=== PATIENT | female | born 1935 | race Caucasian/White ===

== ENCOUNTER 2019-10-29 15:49 | Emergency (ER) | payer MEDICARE, OTHER ==
[~2019-10-29] VITALS: Ht 162.6 cm; Wt 62.8 kg
[2019-10-29 16:17] LABS: HEMATOCRIT 45 % (35-52); HEMOGLOBIN 15.3 G/DL (11.5-16.0); MEAN CORPUSCULAR HEMOGLOBIN 33 PG (25-34); MEAN CORPUSCULAR HGB CONC 34 G/DL (32-36); MEAN CORPUSCULAR VOLUME 99 FL (80-99); MEAN PLATELET VOLUME 10.2 FL (7.4-10.4); NEUTROPHILS % (AUTO) 52 % (42-75); PLATELET COUNT 164 10^3/uL (130-400); RED CELL DISTRIBUTION WIDTH 11.3 % (10.0-14.5); WHITE BLOOD COUNT 6.7 10^3/uL (4.3-11.0)
[2019-10-29 16:18] LABS: BASOPHILS % (AUTO) 0 % (0-10); EOSINOPHILS # (AUTO) 0.1 10^3/uL (0.0-0.3); EOSINOPHILS % (AUTO) 2 % (0-10); LYMPHOCYTES # (AUTO) 2.5 X 10^3 (1.0-4.0); LYMPHOCYTES % (AUTO) 38 % (12-44); MONOCYTES # (AUTO) 0.6 X 10^3 (0.0-1.0); MONOCYTES % (AUTO) 9 % (0-12); NEUTROPHILS # (AUTO) 3.5 X 10^3 (1.8-7.8)
--- NOTE | 2019-10-29 16:18 | ED Neurological Problem ---
General Chief Complaint: Neuro-Stroke Like Symptoms Stated Complaint: STROKE SYMPTOMS Source: patient Exam Limitations: no limitations History of Present Illness Date Seen by Provider: Oct 29, 2019 Time Seen by Provider: 16:10 Initial Comments Patient presents with concern that yesterday she had "TIA symptoms". Patient states she had an ocular migraine without headache with her typical symptoms of flashing lights that lasted less than an hour. States since then she has had some trouble remembering, trouble recalling words and doesn't remember much of yesterday. She denies any weakness, numbness or tingling, difficulty speech or swallowing. Denies history of TIA or stroke. Denies any heart problems, clotting disorder or current anticoagulation treatment. Family history significant for mother had TIAs and stroke. She denies chest pain, palpitations or swelling of extremity. Denies shortness of air or cough. Denies any recent illness, denies fever or chills, weakness or weight loss. Denies abdominal pain, nausea vomiting or change in bowel pattern. Denies any hot or cold intolerance Allergies and Home Medications Allergies Coded Allergies: Penicillins (Verified Allergy, Unknown, 10/29/19) Patient Home Medication List Home Medication List Reviewed: Yes Review of Systems Review of Systems Constitutional: no symptoms reported, see HPI Eyes: Blurred Vision (during migraine); Denies Decreased Acuity, Denies Photophobia Respiratory: no symptoms reported, see HPI Cardiovascular: no symptoms reported, see HPI Gastrointestinal: no symptoms reported, see HPI Psychiatric/Neurological: See HPI Endocrine: See HPI All Other Systems Reviewed Negative Unless Noted: Yes Past Tlmrpcz-Syxrwb-Pxaksm Hx Past Med/Social Hx: Reviewed Nursing Past Med/Soc Hx Patient Social History Smoking Status: Never a Smoker Recent Foreign Travel: No Physical Exam Vital Signs Vital Signs - First Documented 10/29/19 15:50 Temp 36.7 Pulse 75 Resp 16 B/P (MAP) 143/62 (89) Pulse Ox 100 O2 Delivery Room Air Capillary Refill : Height, Weight, BMI Height: '" Weight: lbs. oz. kg; BMI Method: General Appearance: WD/WN, no apparent distress HEENT: PERRL/EOMI, normal ENT inspection, TMs normal, pharynx normal Respiratory: chest non-tender, lungs clear Cardiovascular: regular rate, rhythm, no edema, no JVD Gastrointestinal: non tender, soft Extremities: normal range of motion, non-tender, normal inspection, no pedal edema, no calf tenderness Neurologic/Psychiatric: coat maker II-XII nml as tested, no motor/sensory deficits, alert, normal mood/affect, oriented x 3 Crainal Nerves: normal hearing, normal speech; No abnormal speech, No facial asymmetry, No facial droop, No facial paresthesias, No facial weakness, No gaze palsy Coordination/Gait: normal finger to nose, normal gait Motor/Sensory: no motor deficit, no sensory deficit, no pronator drift Skin: normal color, warm/dry Progress/Results/Core Measures Results/Orders Lab Results Laboratory Tests Test 10/29/19 16:00 10/29/19 16:25 Range/Units White Blood Count 6.7 4.3-11.0 10^3/uL Red Blood Count 4.58 4.35-5.85 10^6/uL Hemoglobin 15.3 11.5-16.0 G/DL Hematocrit 45 35-52 % Mean Corpuscular Volume 99 80-99 FL Mean Corpuscular Hemoglobin 33 25-34 PG Mean Corpuscular Hemoglobin Concent 34 32-36 G/DL Red Cell Distribution Width 11.3 10.0-14.5 % Platelet Count 164 130-400 10^3/uL Mean Platelet Volume 10.2 7.4-10.4 FL Neutrophils (%) (Auto) 52 42-75 % Lymphocytes (%) (Auto) 38 12-44 % Monocytes (%) (Auto) 9 0-12 % Eosinophils (%) (Auto) 2 0-10 % Basophils (%) (Auto) 0 0-10 % Neutrophils # (Auto) 3.5 1.8-7.8 X 10^3 Lymphocytes # (Auto) 2.5 1.0-4.0 X 10^3 Monocytes # (Auto) 0.6 0.0-1.0 X 10^3 Eosinophils # (Auto) 0.1 0.0-0.3 10^3/uL Basophils # (Auto) 0.0 0.0-0.1 10^3/uL Prothrombin Time 12.5 12.2-14.7 SEC INR Comment 0.9 0.8-1.4 Sodium Level 141 135-145 MMOL/L Potassium Level 3.8 3.6-5.0 MMOL/L Chloride Level 102 98-107 MMOL/L Carbon Dioxide Level 26 21-32 MMOL/L Anion Gap 13 5-14 MMOL/L Blood Urea Nitrogen 16 7-18 MG/DL Creatinine 1.13 0.60-1.30 MG/DL Estimat Glomerular Filtration Rate 46 BUN/Creatinine Ratio 14 Glucose Level 130 H 70-105 MG/DL Calcium Level 9.8 8.5-10.1 MG/DL Corrected Calcium 9.5 8.5-10.1 MG/DL Total Bilirubin 0.8 0.1-1.0 MG/DL Aspartate Amino Transf (AST/SGOT) 18 5-34 U/L Alanine Aminotransferase (ALT/SGPT) 11 0-55 U/L Alkaline Phosphatase 121 40-136 U/L Troponin I < 0.30 <0.30 NG/ML Total Protein 7.1 6.4-8.2 GM/DL Albumin 4.4 3.2-4.5 GM/DL Urine Color YELLOW Urine Clarity CLEAR Urine pH 7.0 5-9 Urine Specific [place] 1.010 L 1.016-1.022 Urine Protein NEGATIVE NEGATIVE Urine Glucose (UA) NEGATIVE NEGATIVE Urine Ketones NEGATIVE NEGATIVE Urine Nitrite NEGATIVE NEGATIVE Urine Bilirubin NEGATIVE NEGATIVE Urine Urobilinogen 0.2 < = 1.0 MG/DL Urine Leukocyte Esterase TRACE H NEGATIVE Urine RBC (Auto) TRACE H NEGATIVE Urine RBC 0-2 /HPF Urine WBC 0-2 /HPF Urine Squamous Epithelial Cells 0-2 /HPF Urine Crystals NONE /LPF Urine Bacteria NEGATIVE /HPF Urine Casts NONE /LPF Urine Mucus NEGATIVE /LPF Urine Culture Indicated NO My Orders Orders - ROVENSTINEKRISTINARJ L DO Ct Head Wo (10/29/19 16:07) Ed Iv/Invasive Line Start (10/29/19 16:07) Cbc With Automated Diff (10/29/19 16:07) Comprehensive Metabolic Panel (10/29/19 16:07) Troponin I Fs (10/29/19 16:07) Urinalysis (10/29/19 16:07) Protime With Inr (10/29/19 16:07) Vital Signs/I&O 10/29/19 10/29/19 15:50 17:39 Temp 36.7 Pulse 75 65 Resp 16 20 B/P (MAP) 143/62 (89) 133/56 Pulse Ox 100 96 O2 Delivery Room Air Departure Impression Primary Impression: Migraine Qualified Codes: G43.909 - Migraine, unspecified, not intractable, without status migrainosus Disposition: 01 HOME, SELF-CARE Condition: Stable Departure-Patient Inst. Referrals: SHELTON DIAL DO (PCP/Family) Primary Care Physician RJ GERMAN DO Oct 29, 2019 16:18 POS
--- NOTE | 2019-10-29 16:29 | Diagnostic Imaging Report ---
PROCEDURE: CT head without contrast. TECHNIQUE: Multiple contiguous axial images were obtained through the brain without the use of intravenous contrast. Auto Exposure Controls were utilized during the CT exam to meet ALARA standards for radiation dose reduction. INDICATION: No history. COMPARISON: No prior studies are available for comparison. FINDINGS: Ventricles and sulci appear appropriate for the patient's age. There is a small calcific density in the left posterior parafalcine location measuring 8 mm, likely a small meningioma. No sulcal effacement or midline shift is identified. No acute intra-axial or extra-axial hemorrhage is detected. Cisterns are patent. Visualized paranasal sinuses are clear. IMPRESSION: No acute intracranial process is detected. Dictated by: Dictated on workstation # [id number]
[2019-10-29 16:48] LABS: INR 0.9 (0.8-1.4); PROTHROMBIN TIME PATIENT 12.5 SEC (12.2-14.7)
[2019-10-29 16:49] LABS: ALANINE AMINOTRANSFERASE 11 U/L (0-55); ALKALINE PHOSPHATASE 121 U/L (40-136); BILIRUBIN,TOTAL 0.8 MG/DL (0.1-1.0); BUN/CREATININE RATIO 14; CALCIUM 9.8 MG/DL (8.5-10.1); CARBON DIOXIDE 26 MMOL/L (21-32); CHLORIDE 102 MMOL/L (98-107); CREATININE SERUM 1.13 MG/DL (0.60-1.30); GFR ESTIMATED 46; GLUCOSE 130 MG/DL (70-105); POTASSIUM 3.8 MMOL/L (3.6-5.0); SODIUM 141 MMOL/L (135-145)
[2019-10-29 16:50] LABS: ALBUMIN 4.4 GM/DL (3.2-4.5); TOTAL PROTEIN 7.1 GM/DL (6.4-8.2)
[2019-10-29 17:01] LABS: CLARITY,URINE CLEAR; COLOR,URINE YELLOW; GLUCOSE, URINE (UA) NEGATIVE (NEGATIVE); PROTEIN,URINE NEGATIVE (NEGATIVE)
[2019-10-29 17:02] LABS: BACTERIA,URINE NEGATIVE /HPF; BILIRUBIN,URINE NEGATIVE (NEGATIVE); KETONES,URINE NEGATIVE (NEGATIVE); LEUKOCYTE ESTERASE ,URINE TRACE (NEGATIVE); NITRITE,URINE NEGATIVE (NEGATIVE); RBC,URINE 0-2 /HPF; SQUAMOUS EPITHELIAL CELL,UR 0-2 /HPF; WBC,URINE 0-2 /HPF
[2019-10-29 17:39] VITALS: BP 133/56
== END 2019-10-29 17:40 | disposition home or self-care (01) ==
LOC: EDUNIT# 15:49 → ER FS 15:50
DX: G43.909 Migraine, unspecified, not intractable, without status migrainosus (principal); Z88.0 Allergy status to penicillin
CPT/HCPCS: 36415; 70450; 80053; 81000; 84484; 85025; 85610

== ENCOUNTER → 2019-12-09 | Outpatient (CLI) | payer MEDICARE, OTHER ==
[~2019-12-09] MED LIST: CATHETER FLUSH 10 ML SYR IV PRN
[2019-12-09 10:03] VITALS: BP 181/82
--- NOTE | 2019-12-09 17:18 | STRESS TEST ---
DATE OF SERVICE: 12/09/2019 NUCLEAR MYOVIEW REPORT REFERRING PHYSICIAN: Dr. Steinberg. In summary, the patient was injected with 10.15 mCi of technetium-99 Myoview and the resting images were acquired. With peak stress level, a 31.5 mCi of technetium-99 Myoview were injected and the stress images were acquired. The resting and stress images were reviewed and compared in the short axis, horizontal long axis, and vertical long axis views. Review of the images showed good radiotracer uptake with no ischemia or infarction. SSS is 1, SDS 1, TID value 0.99. On the gated images, the left ventricle appeared to be normal size with normal contractility, calculated ejection fraction 67%. CONCLUSION: 1. No ischemia or infarction on SPECT images. 2. Normal left ventricular size with normal contractility, calculated ejection fraction 67%. Job ID: [id number] DocumentID: [id number] Dictated Date: 12/09/2019 16:23:56 Stretcher Leveler Operator Helper Date: 12/09/2019 17:17:49 Dictated By: ROMELIA OBONE MD
== END ==
LOC: CARD 07:09
PROVIDERS: ATTEND Internal Medicine
DX: G45.9 Transient cerebral ischemic attack, unspecified (principal); I77.810 Thoracic aortic ectasia
CPT/HCPCS: 78452; 93017; 93306

== ENCOUNTER 2020-07-29 04:35 | Emergency (ER) | payer MEDICARE, OTHER ==
[2020-07-29 05:27] LABS: HEMATOCRIT 45 % (35-52); HEMOGLOBIN 15.2 G/DL (11.5-16.0); MEAN CORPUSCULAR HEMOGLOBIN 34 PG (25-34); MEAN CORPUSCULAR HGB CONC 34 G/DL (32-36); MEAN CORPUSCULAR VOLUME 100 FL (80-99); MEAN PLATELET VOLUME 10.4 FL (7.4-10.4); PLATELET COUNT 171 10^3/uL (130-400); WHITE BLOOD COUNT 5.2 10^3/uL (4.3-11.0)
[2020-07-29 05:28] LABS: BASOPHILS # (AUTO) 0.1 10^3/uL (0.0-0.1); BASOPHILS % (AUTO) 1 % (0-10); EOSINOPHILS # (AUTO) 0.1 10^3/uL (0.0-0.3); EOSINOPHILS % (AUTO) 2 % (0-10); LYMPHOCYTES # (AUTO) 2.1 X 10^3 (1.0-4.0); LYMPHOCYTES % (AUTO) 40 % (12-44); MONOCYTES # (AUTO) 0.6 X 10^3 (0.0-1.0); MONOCYTES % (AUTO) 11 % (0-12); NEUTROPHILS # (AUTO) 2.4 X 10^3 (1.8-7.8); NEUTROPHILS % (AUTO) 46 % (42-75)
--- NOTE | 2020-07-29 05:42 | ED Chest Pain ---
General Chief Complaint: Cardiac/General Problems Stated Complaint: A-FIB Nursing Triage Note: Pt states she has a hx of afib and feels like she is having palpitations. Nursing Sepsis Screen: No Definite Risk (CONSUELO RICKETTS DO) History of Present Illness Date Seen by Provider: Jul 29, 2020 Time Seen by Provider: 05:00 Initial Comments Patient is an 85-year-old female with history of intermittent atrial fibrillation who presented generalized weakness and palpitations. Palpitations her described as erratic and occasional. Patient checked her pulse at home prior to ED arrival which was 105. On ED arrival, the patient is in sinus rhythm with a heart rate of 67. Recent symptoms first began 6 days ago. Patient denies dizziness lightheadedness, chest pain and shortness of breath. No other acute symptoms or complaints. Patient's circular ripsaw operator is Dr. Montgomery at [facility].. Timing/Duration: 1 week Severity/Quality: mild Location: other Radiation: no radiation Activities at Onset: none Prior CP/Workup: echocardiography Modifying Factors: improves with lying down ASA po SALESPERSON HOUSEHOLD APPLIANCES: No NTG SL SALESPERSON HOUSEHOLD APPLIANCES: No Associated Symptoms: weakness (CONSUELO RICKETTS DO) Allergies and Home Medications Allergies Coded Allergies: Penicillins (Verified Allergy, Unknown, 10/29/19) Home Medications Sulfamethoxazole/Trimethoprim 1 Each Tablet, 1 EACH PO BID Prescribed by: MAHENDRA AREVALO on 07/29/20 0637 Patient Home Medication List Home Medication List Reviewed: Yes (CONSUELO RICKETTS DO) Review of Systems Review of Systems Constitutional: see HPI EENTM: See HPI Respiratory: See HPI Cardiovascular: See HPI Gastrointestinal: See HPI Genitourinary: See HPI Musculoskeletal: see HPI Skin: see HPI Psychiatric/Neurological: See HPI Endocrine: See HPI Hematologic/Lymphatic: See HPI (CONSUELO RICKETTS DO) Past Ynehtux-Lsgvya-Qzqxbf Hx Past Med/Social Hx: Reviewed Nursing Past Med/Soc Hx (CONSUELO RICKETTS DO) Patient Social History Alcohol Use: Denies Use Recreational Drug Use: No Smoking Status: Never a Smoker 2nd Hand Smoke Exposure: No Recent Foreign Travel: No Contact w/Someone Who Travel: No Recent Infectious Disease Expo: No Recent Hopitalizations: No Physical Abuse: No Sexual Abuse: No (CONSUELO RICKETTS DO) Seasonal Allergies Seasonal Allergies: No (CONSUELO RICKETTS DO) Past Medical History Surgeries: Yes Hysterectomy, Tonsillectomy Respiratory: No Cardiac: Yes (tachycardia) Neurological: Yes (ocular migraines) Genitourinary: No Gastrointestinal: No Musculoskeletal: No Endocrine: No HEENT: No Cancer: No Psychosocial: No Integumentary: No (CONSUELO RICKETTS DO) Physical Exam Vital Signs Vital Signs - First Documented 07/29/20 04:49 Temp 36.3 Pulse 85 Resp 16 B/P (MAP) 140/90 (107) O2 Delivery Room Air (MAHENDRA AREVALO MD) Vital Signs Capillary Refill : Less Than 3 Seconds (CONSUELO RICKETTS DO) Height, Weight, BMI Height: '" Weight: lbs. oz. kg; 23.00 BMI Method: General Appearance: No Apparent Distress, WD/WN HEENT: PERRL/EOMI, Normal ENT Inspection, Pharynx Normal Neck: Non Tender, Supple Respiratory: Chest Non Tender, Lungs Clear, No Accessory Muscle Use, No Respiratory Distress Cardiovascular: Regular Rate, Rhythm Gastrointestinal: Soft Extremity: Normal Capillary Refill Neurologic/Psychiatric: Alert, Oriented x3 Lymphatic: No Adenopathy (CONSUELO RICKETTS DO) Focused Exam Sepsis Stage: Ruled Out (CONSUELO RICKETTS DO) Progress/Results/Core Measures Results/Orders Lab Results Laboratory Tests Test 07/29/20 04:49 07/29/20 05:32 Range/Units White Blood Count 5.2 4.3-11.0 10^3/uL Red Blood Count 4.52 4.35-5.85 10^6/uL Hemoglobin 15.2 11.5-16.0 G/DL Hematocrit 45 35-52 % Mean Corpuscular Volume 100 H 80-99 FL Mean Corpuscular Hemoglobin 34 25-34 PG Mean Corpuscular Hemoglobin Concent 34 32-36 G/DL Red Cell Distribution Width 11.6 10.0-14.5 % Platelet Count 171 130-400 10^3/uL Mean Platelet Volume 10.4 7.4-10.4 FL Neutrophils (%) (Auto) 46 42-75 % Lymphocytes (%) (Auto) 40 12-44 % Monocytes (%) (Auto) 11 0-12 % Eosinophils (%) (Auto) 2 0-10 % Basophils (%) (Auto) 1 0-10 % Neutrophils # (Auto) 2.4 1.8-7.8 X 10^3 Lymphocytes # (Auto) 2.1 1.0-4.0 X 10^3 Monocytes # (Auto) 0.6 0.0-1.0 X 10^3 Eosinophils # (Auto) 0.1 0.0-0.3 10^3/uL Basophils # (Auto) 0.1 0.0-0.1 10^3/uL Sodium Level 140 135-145 MMOL/L Potassium Level 4.4 3.6-5.0 MMOL/L Chloride Level 102 98-107 MMOL/L Carbon Dioxide Level 26 21-32 MMOL/L Anion Gap 12 5-14 MMOL/L Blood Urea Nitrogen 18 7-18 MG/DL Creatinine 1.19 0.60-1.30 MG/DL Estimat Glomerular Filtration Rate 43 BUN/Creatinine Ratio 15 Glucose Level 99 70-105 MG/DL Calcium Level 9.7 8.5-10.1 MG/DL Corrected Calcium 9.5 8.5-10.1 MG/DL Magnesium Level 2.2 1.6-2.4 MG/DL Total Bilirubin 1.1 H 0.1-1.0 MG/DL Aspartate Amino Transf (AST/SGOT) 17 5-34 U/L Alanine Aminotransferase (ALT/SGPT) 8 0-55 U/L Alkaline Phosphatase 112 40-136 U/L Troponin I < 0.30 <0.30 NG/ML Pro-B-Type Natriuretic Peptide 456.2 H <75.0 PG/ML Total Protein 6.9 6.4-8.2 GM/DL Albumin 4.2 3.2-4.5 GM/DL Urine Color YELLOW Urine Clarity CLEAR Urine pH 6.5 5-9 Urine Specific [place] 1.010 L 1.016-1.022 Urine Protein NEGATIVE NEGATIVE Urine Glucose (UA) NEGATIVE NEGATIVE Urine Ketones NEGATIVE NEGATIVE Urine Nitrite NEGATIVE NEGATIVE Urine Bilirubin NEGATIVE NEGATIVE Urine Urobilinogen 0.2 < = 1.0 MG/DL Urine Leukocyte Esterase TRACE H NEGATIVE Urine RBC (Auto) TRACE H NEGATIVE Urine RBC 2-5 H /HPF Urine WBC 5-10 H /HPF Urine Squamous Epithelial Cells 2-5 /HPF Urine Crystals NONE /LPF Urine Bacteria NEGATIVE /HPF Urine Casts NONE /LPF Urine Mucus NEGATIVE /LPF Urine Culture Indicated YES (MAHENDRA AREVALO MD) My Orders Orders - MAHENDRA AREVALO MD Sulfamethoxazole/Trimet Ds Tab (Bactrim (07/29/20 06:33) Sulfamethoxazole/Trimet Ds Tab (Bactrim (07/29/20 06:32) (MAHENDRA AREVALO MD) Medications Given in ED Current Medications Medications Dose Ordered Sig/Feliz Route Start Time Stop Time Status Last Admin Dose Admin Furosemide 20 mg ONCE ONCE IVP 07/29/20 06:15 07/29/20 06:16 DC 07/29/20 06:12 20 MG (MAHENDRA AREVALO MD) Vital Signs/I&O 07/29/20 04:49 Temp 36.3 Pulse 85 Resp 16 B/P (MAP) 140/90 (107) O2 Delivery Room Air (MAHENDRA AREVALO MD) Blood Pressure Mean: 107 Progress Progress Note : Time: 06:10 Progress Note I assumed care of patient from Dr. Ricketts at shift change. Labs stable with mild findings for UTI and pt reporting odor to urine, so probable UTI. Culture of urine is being sent. Troponin negative and BNP is slightly elevated but for her age it looks ok. She is not having findings of failure. She reports feeling better now. She has long standing paroxysmal atrial fibrilla tion and follows with Dr. Montgomery with cardiology at [facility] in [place]. She called Monday but has not heard back from them. Will treat UTI and have her call again today. Return if having more problems before can get back with clinic. May need adjustment to Atenolol but hopefully treating the UTI will help her symptoms as well. (MAHENDRA AREVALO MD) Diagnostic Imaging Diagonstic Imaging: Xray Plain Films/CT/US/NM/MRI: chest Comments [facility]. [place], [place] NAME: GRETTA RAMAN [facility] REC#: [id number] PT STATUS: REG ER : 1935 PHYSICIAN: CONSUELO RICKETTS DO ADMIT DATE: 07/29/20/ER FS Draft Date of Exam:07/29/20 CHEST 1 VIEW AP/PA ONLY PATIENT HISTORY: Chest pain and palpitations. TECHNIQUE: Frontal view of the chest. COMPARISON: None FINDINGS: The lung volumes are mildly large. No focal consolidation is seen. No large pleural effusion or pneumothorax is seen. The cardiomediastinal silhouette is normal in size and contour. No acute osseous abnormality is seen. There are degenerative changes in the shoulders and spine. IMPRESSION: No acute pulmonary abnormality seen. Dictated on workstation # [id number] Dict: 07/29/20625 Trans: 07/29/20627 [id number] Interpreted by: YENIN TODD MD Electronically signed by: (MAHENDRA AREVALO MD) Departure Communication (Admissions) Chest x-ray reviewed, no acute disease. EKG: Sinus rhythm, rate 67. No ST depression in lateral leads Generalized weakness with occasional palpitation. Patient with sinus rhythm on monitor with occasional PVC and mild ST depression in lateral leads. Patient denies chest pain shortness of breath. Workup is in progress with labs pending. There will be transitioned to the oncoming ERP at 0600 (CONSUELO RICKETTS DO) Impression Primary Impression: Palpitations Additional Impressions: Generalized weakness Cystitis without hematuria Paroxysmal atrial fibrillation Disposition: HOME, SELF-CARE Condition: Stable Departure-Patient Inst. Decision time for Depature: 06:35 (MAHENRDA AREVALO MD) Referrals: SHELTON DIAL DO (PCP/Family) Primary Care Physician Patient Instructions: Atrial Fibrillation (DC), Palpitations (DC), Urinary Tract Infection, Adult (DC) Add. Discharge Instructions: Take the full course of antibiotics. Call your circular ripsaw operator again today and let them know you were seen in the ER. See if they want to see you in clinic or how they want to manage your increased episodes of atrial fibrillation with fast heart rate and palpitations. You may n eed to have an increase in your atenolol dose. All discharge instructions reviewed with patient and/or family. Voiced underst anding. Scripts Sulfamethoxazole/Trimethoprim (Bactrim Ds Tablet) 1 Each Tablet 1 EACH PO BID for UTI for 7 Days, #14 TAB 0 Refills Prov: MAHENDRA AREVALO MD 07/29/20 CONSUELO RICKETTS DO Jul 29, 2020 05:42 MAHENDRA AREVALO MD Jul 29, 2020 06:37
[2020-07-29 05:49] LABS: BACTERIA,URINE NEGATIVE /HPF; BILIRUBIN,URINE NEGATIVE (NEGATIVE); CLARITY,URINE CLEAR; COLOR,URINE YELLOW; GLUCOSE, URINE (UA) NEGATIVE (NEGATIVE); KETONES,URINE NEGATIVE (NEGATIVE); LEUKOCYTE ESTERASE ,URINE TRACE (NEGATIVE); NITRITE,URINE NEGATIVE (NEGATIVE); PH,URINE 6.5 (5-9); PROTEIN,URINE NEGATIVE (NEGATIVE)
[2020-07-29 05:59] LABS: ALANINE AMINOTRANSFERASE 8 U/L (0-55); ALKALINE PHOSPHATASE 112 U/L (40-136); BILIRUBIN,TOTAL 1.1 MG/DL (0.1-1.0); BUN/CREATININE RATIO 15; CALCIUM 9.7 MG/DL (8.5-10.1); CARBON DIOXIDE 26 MMOL/L (21-32); CHLORIDE 102 MMOL/L (98-107); CREATININE SERUM 1.19 MG/DL (0.60-1.30); GFR ESTIMATED 43; GLUCOSE 99 MG/DL (70-105); MAGNESIUM 2.2 MG/DL (1.6-2.4); POTASSIUM 4.4 MMOL/L (3.6-5.0); SODIUM 140 MMOL/L (135-145); TOTAL PROTEIN 6.9 GM/DL (6.4-8.2)
[2020-07-29 06:00] LABS: ALBUMIN 4.2 GM/DL (3.2-4.5)
[2020-07-29] MEDS ORDERED: FUROSEMIDE 40 MG/4 ML INJ (LASIX) IVP ONE ×2 (06:15)
--- NOTE | 2020-07-29 06:28 | Diagnostic Imaging Report ---
PATIENT HISTORY: Chest pain and palpitations. TECHNIQUE: Frontal view of the chest. COMPARISON: None FINDINGS: The lung volumes are mildly large. No focal consolidation is seen. No large pleural effusion or pneumothorax is seen. The cardiomediastinal silhouette is normal in size and contour. No acute osseous abnormality is seen. There are degenerative changes in the shoulders and spine. IMPRESSION: No acute pulmonary abnormality seen. Dictated by: Dictated on workstation # [id number]
[2020-07-29] MEDS ORDERED: TRIM/SULFAMETH 160/800 (SEPTRA DS) TAB PO ONE (06:32)
[2020-07-29] MEDS ORDERED: TRIM/SULFAMETH 160/800 (SEPTRA DS) TAB PO STA (06:33)
[2020-07-29] MEDS ORDERED: SULF1TAB35 PO (06:37)
[2020-07-29 06:40] VITALS: BP 153/60
== END 2020-07-29 06:42 | disposition home or self-care (01) ==
LOC: EDUNIT# 04:35 → ER FS 04:37
DX: I48.0 Paroxysmal atrial fibrillation (principal); N30.90 Cystitis, unspecified without hematuria; Z88.0 Allergy status to penicillin
CPT/HCPCS: 36415; 71045; 80053; 81000; 83735; 83880; 84484; 85025; 87088

== ENCOUNTER → 2021-06-17 | Outpatient (CLI) | payer MEDICARE, OTHER ==
[~2021-06-17] MED LIST changes: -CATHETER FLUSH 10 ML SYR IV PRN; +SULF1TAB38 PO
--- NOTE | 2021-06-17 11:26 | Diagnostic Imaging Report ---
Indication: Chronic cough PA and lateral chest Heart size and pulmonary vascularity are normal. Lungs are clear. There are no effusions or pneumothoraces. IMPRESSION: Negative chest Dictated by: Dictated on workstation # [id number]
== END ==
LOC: RAD FS 09:57
PROVIDERS: ATTEND Internal Medicine
DX: R05 Cough (principal)
CPT/HCPCS: 71046

== ENCOUNTER → 2021-06-24 | Outpatient (CLI) | payer MEDICARE, OTHER ==
--- NOTE | 2021-06-24 12:31 | Diagnostic Imaging Report ---
Indication: Constipation and abdominal pain Single AP view of the abdomen reveals mild stool throughout the colon. There is no evidence free intraperitoneal gas or pneumatosis. No site of obstruction is identified. There is no evidence of pathologic abdominal calcification. IMPRESSION: No acute abnormality. Dictated by: Dictated on workstation # [id number]
== END ==
LOC: RAD FS 11:28
PROVIDERS: ATTEND Nurse Practitioner Family
DX: R10.11 Right upper quadrant pain (principal); M54.6 Pain in thoracic spine; K59.00 Constipation, unspecified
CPT/HCPCS: 74018

== ENCOUNTER 2021-08-05 19:33 | Emergency (ER) | payer MEDICARE, OTHER ==
--- OUTSIDE RECORDS SUMMARY | 2021-08-05 19:37 | XMS REPORT | Clinical Summary ---
Author Author [facility] Organization [facility] Address Unknown Phone Unavailable Care Team Providers Care Laboratory Mechanical Technician Name Role Phone Manju Lorraine JANET PCP Source Comments Some departments are not documenting in the electronic medical record. If you d o not see the information that you expected, contact Release of Information in formerly [facility] [place] Information Management department at [phone] for further assistan ce in locating additional records.[facility] Allergies Comments Active Allergy Reactions Severity Noted Date Penicillins UNKNOWN Low 01/29/2021 Sulfa (Sulfonamide UNKNOWN Low 01/29/2021 Antibiotics) Medications End Date Status Medication Sig Dispensed Refills Start Date Active amLODIPine (NORVASC) 5 mg Take 5 mg by 0 tablet mouth daily. 1 Active atenoloL (TENORMIN) 25 mg every 24 0 tablet hours. Active nitrofurantoin every 12 0 monohyd/m-cryst hours. 0 (MACROBID) 100 mg capsule Active ergocalciferol (vitamin 0 D2) (VITAMIN D PO) Active apixaban (ELIQUIS) 5 mg every 12 0 tablet hours. Active amiodarone (PACERONE) 100 every 24 0 mg tablet hours. Active brimonidine tartrate Place into 0 (ALPHAGAN P OP) or around eye(s). Active other medication 1 Dose. 0 Medication Name & Strength: [facility] Dose(how many): 1 Frequency(how often): ONE A DAY Active estradioL (ESTRACE) 0.01 For 14 days, 42.5 g 2 % (0.1 mg/g) vaginal insert/apply 1 cream 0.5 g (1/2 fingertip unit) intravaginall y and to vaginal opening once nightly. Then, apply 1 g (1 fingertip unit) in the same way twice weekly at bedtime. Active Problems Problem Noted Date Vaginal atrophy 01/29/2021 Surgical History Surgery Date Site/Laterality Comments HX HYSTERECTOMY 11/13/1987 - 11/12/1988 OOPHORECTOMY 11/13/1987 - 11/12/1988 HEMORRHOIDECTOMY 11/13/1982 - 11/12/1983 Medical History Medical History Date Comments Hypertension Heart disease TIA (transient ischemic attack) 10/2019 A-fib (HCC) Family History Medical History Relation Name Comments Cancer-Skin Father Cancer-Skin Mother Heart Disease Mother Relation Name Status Comments Father Mother Social History Date Tobacco Use Types Packs/Day Years Used Never Smoker Smokeless Tobacco: Never Used Comments Alcohol Use Standard Drinks/Week Never 0 (1 standard drink = 0.6 o z pure alcohol) Alcohol Habits Answer Date Recorded How often do you have a drink containing alcohol? Never 01/29/2021 How many drinks containing alcohol do you have on No t asked a typical day when you are drinking? How often do you have six or more drinks on one Not asked occasion? Comment: Not asked Sex Assigned at Date Recorded Female 01/28/2021 7:55 AM CDT Last Filed Vital Signs Reading Time Taken Comments Vital Sign 133/63 01/29/2021 11:05 AM CDT Blood Pressure 76 01/29/2021 11:05 AM CDT Pulse 36.8 C (98.2 F) 01/29/2021 11:05 AM CDT Temperature 19 01/29/2021 11:05 AM CDT Respiratory Rate 100% 01/29/2021 11:05 AM CDT Oxygen Saturation - - Inhaled Oxygen Concentration 65 kg (143 lb 4.8 oz) 01/29/2021 11:05 AM CDT Weight 162.6 cm (5' 4") 01/29/2021 11:05 AM CDT Height 24.6 01/29/2021 11:05 AM CDT Body Mass Index Plan of Treatment Health Maintenance Due Date Last Done Comments MEDICARE ANNUAL WELLNESS 1935 VISIT DTAP/TDAP VACCINES (1 - 1955 Tdap) PHYSICAL (COMPREHENSIVE) 1955 EXAM SHINGLES RECOMBINANT 1987 VACCINE (1 of 2) OSTEOPOROSIS 2002 SCREENING/MONITORING PNEUMONIA (PPSV23) 2002 VACCINE (1 of 1 - PPSV23) INFLUENZA VACCINE 08/13/2021 Results Not on filefrom Last 3 Months Insurance Type Payer Benefit Subscriber ID Effective Phone Address Plan / Dates Group Medicare MEDICARE MEDICARE [id number] PART A AND resent B [facility] [id number] 2020 -Present [id number] Advance Directives Patient 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
--- NOTE | 2021-08-05 19:43 | ED General ---
General Stated Complaint: HYPERTENSION Source of Information: Patient History of Present Illness Date Seen by Provider: Aug 05, 2021 Time Seen by Provider: 19:40 Initial Comments 86-year-old female presents with generalized weakness, epigastric pain and nausea with loss of appetite for several weeks duration. Also concerns of elevated blood pressure tonight, although she has not taken her evening blood pressure medication yet. She admits she has been taking her blood pressure twice a day and its been going up. She normally takes her atenolol just in the evenings, not twice daily. Past medical history significant for hypertension. Patient does not recall the names of her other medications Allergies and Home Medications Allergies Coded Allergies: Penicillins (Verified Allergy, Unknown, 10/29/19) Patient Home Medication List Home Medication List Reviewed: Yes Sulfamethoxazole/Trimethoprim (Bactrim Ds Tablet) 1 Each Tablet, 1 EACH PO BID Prescribed by: MAHENDRA AREVALO on 07/29/20 0637 Review of Systems Review of Systems Constitutional: No fever, No malaise; weakness EENTM: no symptoms reported Respiratory: No cough, No short of breath Cardiovascular: No chest pain, No edema, No palpitations, No syncope Gastrointestinal: see HPI, abdominal pain; No constipation, No diarrhea, No hematemesis, No heartburn; loss of appetite, nausea; No vomiting Genitourinary: No dysuria, No frequency Musculoskeletal: no symptoms reported Skin: No change in color, No rash Psychiatric/Neurological: Denies Headache, Denies Numbness, Denies Paresthesia; Weakness Past Nidqxtb-Qeftpi-[id number] Hx Patient Social History Tobacco Use?: No Seasonal Allergies Seasonal Allergies: No Past Medical History Surgeries: Yes Hysterectomy, Tonsillectomy Respiratory: No Cardiac: Yes (tachycardia) Neurological: Yes (ocular migraines) Genitourinary: No Gastrointestinal: No Musculoskeletal: No Endocrine: No HEENT: No Cancer: No Psychosocial: No Integumentary: No Physical Exam Vital Signs Vital Signs - First Documented 08/05/21 19:35 Temp 37.0 Pulse 63 Resp 18 B/P (MAP) 191/82 (118) Pulse Ox 97 O2 Delivery Room Air Capillary Refill : Height, Weight, BMI Height: '" Weight: lbs. oz. 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 Norm as Tested Skin: Normal Color, Warm/Dry Progress/Results/Core Measures Suspected Sepsis SIRS Temperature: Pulse: Respiratory Rate: Laboratory Tests 08/05/21 19:55: White Blood Count 7.4 Blood Pressure / Mean: Laboratory Tests 08/05/21 19:55: Creatinine 2.67H, Platelet Count 155, Total Bilirubin 1.2H Results/Orders Lab Results Laboratory Tests Test 08/05/21 19:45 08/05/21 19:55 Range/Units Urine Color YELLOW Urine Clarity CLEAR Urine pH 7.0 5-9 Urine Specific [place] 1.015 L 1.016-1.022 Urine Protein NEGATIVE NEGATIVE Urine Glucose (UA) NEGATIVE NEGATIVE Urine Ketones NEGATIVE NEGATIVE Urine Nitrite NEGATIVE NEGATIVE Urine Bilirubin NEGATIVE NEGATIVE Urine Urobilinogen 0.2 < = 1.0 MG/DL Urine Leukocyte Esterase TRACE H NEGATIVE Urine RBC (Auto) 1+ H NEGATIVE Urine RBC 0-2 /HPF Urine WBC 2-5 /HPF Urine Squamous Epithelial Cells RARE /HPF Urine Crystals PRESENT H /LPF Urine Amorphous Sediment FEW LEONILA PHOSPHATE H /LPF Urine Bacteria NEGATIVE /HPF Urine Casts PRESENT /LPF Urine Hyaline Casts 0-2 H /LPF Urine Mucus SMALL H /LPF Urine Culture Indicated NO White Blood Count 7.4 4.3-11.0 10^3/uL Red Blood Count 4.09 3.80-5.11 10^6/uL Hemoglobin 13.5 11.5-16.0 g/dL Hematocrit 39 35-52 % Mean Corpuscular Volume 94 80-99 fL Mean Corpuscular Hemoglobin 33 25-34 pg Mean Corpuscular Hemoglobin Concent 35 32-36 g/dL Red Cell Distribution Width 12.7 10.0-14.5 % Platelet Count 155 130-400 10^3/uL Mean Platelet Volume 10.0 9.0-12.2 fL Immature Granulocyte % (Auto) 0 % Neutrophils (%) (Auto) 73 42-75 % Lymphocytes (%) (Auto) 14 12-44 % Monocytes (%) (Auto) 12 0-12 % Eosinophils (%) (Auto) 1 0-10 % Basophils (%) (Auto) 0 0-10 % Neutrophils # (Auto) 5.4 1.8-7.8 X 10^3 Lymphocytes # (Auto) 1.0 1.0-4.0 X 10^3 Monocytes # (Auto) 0.9 0.0-1.0 X 10^3 Eosinophils # (Auto) 0.0 0.0-0.3 10^3/uL Basophils # (Auto) 0.0 0.0-0.1 10^3/uL Immature Granulocyte # (Auto) 0.0 0.0-0.1 10^3/uL Sodium Level 133 L 135-145 MMOL/L Potassium Level 3.8 3.6-5.0 MMOL/L Chloride Level 96 L 98-107 MMOL/L Carbon Dioxide Level 26 21-32 MMOL/L Anion Gap 11 5-14 MMOL/L Blood Urea Nitrogen 40 H 7-18 MG/DL Creatinine 2.67 H 0.60-1.30 MG/DL Estimat Glomerular Filtration Rate 17 BUN/Creatinine Ratio 15 Glucose Level 121 H 70-105 MG/DL Calcium Level 15.6 *H 8.5-10.1 MG/DL Corrected Calcium 15.5 H 8.5-10.1 MG/DL Total Bilirubin 1.2 H 0.1-1.0 MG/DL Aspartate Amino Transf (AST/SGOT) 24 5-34 U/L Alanine Aminotransferase (ALT/SGPT) 13 0-55 U/L Alkaline Phosphatase 120 40-136 U/L Troponin I < 0.30 <0.30 NG/ML Total Protein 7.2 6.4-8.2 GM/DL Albumin 4.1 3.2-4.5 GM/DL My Orders Orders - RJ GERMAN DO Cbc With Automated Diff (08/05/21 19:40) Comprehensive Metabolic Panel (08/05/21 19:40) Ed Iv/Invasive Line Start (08/05/21 19:40) Ekg Tracing (08/05/21 19:40) Troponin I Fs (08/05/21 19:40) Urinalysis (08/05/21 19:40) Atenolol Tablet (Tenormin Tablet) (08/05/21 19:45) Atenolol Tablet (Tenormin Tablet) (08/05/21 19:45) Acetaminophen Tablet (Tylenol Tablet) (08/05/21 20:30) Ns Iv 1000 Ml (Sodium Chloride 0.9%) (08/05/21 21:00) Ns Iv 1000 Ml (Sodium Chloride 0.9%) (08/05/21 21:00) Chest 1 View Ap/Pa Only (08/05/21 21:32) Medications Given in ED Current Medications Medications Dose Ordered Sig/Feliz Route Start Time Stop Time Status Last Admin Dose Admin Acetaminophen 1,000 mg ONCE ONCE PO 08/05/21 20:30 08/05/21 20:31 DC 08/05/21 20:32 1,000 MG Atenolol 25 mg ONCE ONCE PO 08/05/21 19:45 08/05/21 19:50 DC 08/05/21 19:52 25 MG Vital Signs/I&O 08/05/21 19:35 Temp 37.0 Pulse 63 Resp 18 B/P (MAP) 191/82 (118) Pulse Ox 97 O2 Delivery Room Air Capillary Refill : Progress Note : Progress Note Multiple calls for placement (all prior to [facility] as typically and known yesterday to have no availability): [facility] 0-[facility] ECG Initial ECG Impression Date: Aug 05, 2021 Initial ECG Impression Time: 19:56 Initial ECG Rate: 60 Initial ECG Rhythm: Normal Sinus Initial ECG Intervals: Normal Initial ECG Impression: Normal Departure Impression Primary Impression: Renal failure Qualified Codes: N19 - Unspecified kidney failure Additional Impression: Hypercalcemia Disposition: XFER SHT-TRM HOSP ([facility]) Condition: Stable Transfer Transfer Reason: Exceeds level of care Time Spoke to Accepting Phy: 21:[address] Greenwood accepts for transfer to [facility]- bed assignment pending Departure-Patient Inst. Referrals: SHEL[facility] DIAL DO (PCP/Family) Primary Care Physician RJ GERMAN DO Aug 05, 2021 19:43
[2021-08-05] MEDS: ATENOLOL 25 MG (TENORMIN) TAB PO ONE (19:52)
[2021-08-05] MEDS: ATENOLOL 25 MG (TENORMIN) TAB ONE (19:53)
[2021-08-05 19:57] LABS: BILIRUBIN,URINE NEGATIVE (NEGATIVE); CLARITY,URINE CLEAR; COLOR,URINE YELLOW; GLUCOSE, URINE (UA) NEGATIVE (NEGATIVE); KETONES,URINE NEGATIVE (NEGATIVE); LEUKOCYTE ESTERASE ,URINE TRACE (NEGATIVE); NITRITE,URINE NEGATIVE (NEGATIVE); PROTEIN,URINE NEGATIVE (NEGATIVE)
[2021-08-05 20:17] LABS: BACTERIA,URINE NEGATIVE /HPF; RBC,URINE 0-2 /HPF; SQUAMOUS EPITHELIAL CELL,UR RARE /HPF
[2021-08-05 20:18] LABS: AMORPHOUS SEDIMENT,UR FEW AMOR PHOSPHATE /LPF; HYALINE CASTS, URINE 0-2 /LPF
[2021-08-05 20:21] LABS: WHITE BLOOD COUNT 7.4 10^3/uL (4.3-11.0)
[2021-08-05 20:22] LABS: BASOPHILS % (AUTO) 0 % (0-10); EOSINOPHILS % (AUTO) 1 % (0-10); HEMATOCRIT 39 % (35-52); HEMOGLOBIN 13.5 g/dL (11.5-16.0); LYMPHOCYTES % (AUTO) 14 % (12-44); MEAN CORPUSCULAR HEMOGLOBIN 33 pg (25-34); MEAN CORPUSCULAR HGB CONC 35 g/dL (32-36); MEAN CORPUSCULAR VOLUME 94 fL (80-99); MONOCYTES # (AUTO) 0.9 X 10^3 (0.0-1.0); MONOCYTES % (AUTO) 12 % (0-12); NEUTROPHILS # (AUTO) 5.4 X 10^3 (1.8-7.8); NEUTROPHILS % (AUTO) 73 % (42-75); PLATELET COUNT 155 10^3/uL (130-400)
[2021-08-05] MEDS: ACETAMINOPHEN 500 MG TAB (TYLENOL) PO ONE (20:32)
[2021-08-05 20:34] LABS: CHLORIDE 96 MMOL/L (98-107); POTASSIUM 3.8 MMOL/L (3.6-5.0); SODIUM 133 MMOL/L (135-145)
[2021-08-05 20:35] LABS: BUN/CREATININE RATIO 15; CARBON DIOXIDE 26 MMOL/L (21-32); CREATININE SERUM 2.67 MG/DL (0.60-1.30); GFR ESTIMATED 17; GLUCOSE 121 MG/DL (70-105)
[2021-08-05 20:37] LABS: CALCIUM 15.6 MG/DL (8.5-10.1)
[2021-08-05 20:38] LABS: ALANINE AMINOTRANSFERASE 13 U/L (0-55); ALBUMIN 4.1 GM/DL (3.2-4.5); ALKALINE PHOSPHATASE 120 U/L (40-136); BILIRUBIN,TOTAL 1.2 MG/DL (0.1-1.0); TOTAL PROTEIN 7.2 GM/DL (6.4-8.2)
[2021-08-05] MEDS: NS IV 1000 ML 1,000 ML IV SCH (21:09)
[2021-08-05] MEDS: NS IV 1000 ML 1,000 ML ONE (21:23)
--- NOTE | 2021-08-05 21:57 | Diagnostic Imaging Report ---
INDICATION: Weakness. EXAMINATION: Portable AP upright view of the chest was obtained. COMPARISON: Study of 07/29/2020. FINDINGS: Heart size and pulmonary vascularity are within normal limits, and the lungs are clear, bilaterally. IMPRESSION: Unremarkable chest. Dictated by: Dictated on workstation # [id number]
[2021-08-05 22:04] VITALS: BP 165/70
== END 2021-08-05 22:30 | disposition short-term general hospital (02) ==
LOC: ER FS 19:33 → EDUNIT# 19:33 → ER FS 22:30
DX: N19 Unspecified kidney failure (principal); E83.52 Hypercalcemia
CPT/HCPCS: 36415; 71045; 80053; 81000; 84484; 85025; 93005

== ENCOUNTER → 2021-09-10 | Outpatient (CLI) | payer MEDICARE, OTHER ==
--- NOTE | 2021-09-10 10:27 | Diagnostic Imaging Report ---
INDICATION: HISTORY OF PULMONARY EDEMA. TECHNIQUE: Two view chest 10:18 AM CORRELATION STUDY: 08/05/2021 FINDINGS: The heart size, mediastinal configuration and pulmonary vasculature are within normal limits. Lung mercado are slightly hyperinflated compatible with COPD. Mildly prominent interstitial markings likely reflect mild edema along with small pleural effusions. No infiltrate. Mildly prominent degenerative changes with bridging osteophytes. IMPRESSION: 1. While no evidence of overt failure, there does appear to be a component of mild interstitial edema and small pleural effusions, changed from prior. Dictated by: Dictated on workstation # [id number]
== END ==
LOC: RAD FS 10:06
PROVIDERS: ATTEND Nurse Practitioner Family
DX: Z87.09 Personal history of other diseases of the respiratory system (principal)
CPT/HCPCS: 71046

== ENCOUNTER → 2021-09-21 | Outpatient (CLI) | payer MEDICARE, OTHER ==
--- NOTE | 2021-09-21 14:11 | Diagnostic Imaging Report ---
Indication: History of pulmonary edema. COPD 2 views the chest shows normal heart size and vascularity. There is obstructive airway disease with no mass or infiltrate seen. There is no effusion or pneumothorax. IMPRESSION: COPD. No acute abnormality is seen. The previously described interstitial edema and small effusions have resolved. Dictated by: Dictated on workstation # [id number]
== END ==
LOC: RAD FS 13:35
PROVIDERS: ATTEND Nurse Practitioner Family
DX: J44.9 Chronic obstructive pulmonary disease, unspecified (principal)
CPT/HCPCS: 71046

== ENCOUNTER 2022-04-06 10:45 | Day surgery (SDC) | payer MEDICARE, OTHER ==
[~2022-04-06] VITALS: Ht 162.6 cm; Wt 58.3 kg
[2022-04-06] MEDS ORDERED: LIDOCAINE 1% INJ 20 ML VIAL INJ ONE (11:00)
[2022-04-06 11:02] VITALS: BP 140/62
--- NOTE | 2022-04-06 11:52 | Implantation of Loop Monitor ---
Implant of Loop Monitior IMPLANTATION OF LOOP MONITOR REPORT DATE OF PROCEDURE: 04/06/22 PREOP DIAGNOSIS: Paroxysmal atrial fibrillation POSTOP DIAGNOSIS: Paroxysmal atrial fibrillation PROCEDURE DETAILS: The patient is a 87 female with history of paroxysmal atrial fibrillation requiring long-term surveillance. Therefore implantable loop recorder was discussed and agreed with the patient. Informed consent was taken. All risks and complications were discussed at length. The patient was draped and prepped in the usual sterile fashion. Local anesthesia was lidocaine, which was given in the substernal area close to the 4th intercostal space. Loop monitor 21GRAMStronic with serial number [id number] was implanted according to the protocol. Steri- Strips were placed at the end of the procedure. There were no complications and the patient tolerated the procedure well. The device was interrogated with a voltage of. ANESTHESIA: Local anesthesia with lidocaine. COMPLICATIONS: None CONTRAST/FLUOROSCOPY: None CONCLUSION: Successful implantation of loop monitor with no complication FINAL DIAGNOSIS: Paroxysmal atrial fibrillation Palpitation Hypertension ROMELIA BOONE MD April 06, 2022 11:52
== END 2022-04-06 12:10 | disposition home or self-care (01) ==
LOC: CATH 10:45
PROVIDERS: ATTEND Internal Medicine Cardiovascular Disease
DX: I48.0 Paroxysmal atrial fibrillation (principal); R00.2 Palpitations; I65.29 Occlusion and stenosis of unspecified carotid artery; E78.5 Hyperlipidemia, unspecified; N18.9 Chronic kidney disease, unspecified; I12.9 Hypertensive chronic kidney disease with stage 1 through stage 4 chronic kidney disease, or unspecified chronic kidney disease; I35.0 Nonrheumatic aortic (valve) stenosis; D47.2 Monoclonal gammopathy; Z79.01 Long term (current) use of anticoagulants; Z79.899 Other long term (current) drug therapy; Z86.73 Personal history of transient ischemic attack (TIA), and cerebral infarction without residual deficits
CPT/HCPCS: 33285; C1764

== ENCOUNTER → 2022-04-06 | Outpatient (CLI) | payer MEDICARE, OTHER ==
[2022-04-06 12:52] LABS: BASOPHILS % (AUTO) 1 % (0-10); EOSINOPHILS % (AUTO) 1 % (0-10); HEMATOCRIT 35 % (35-52); HEMOGLOBIN 11.5 g/dL (11.5-16.0); LYMPHOCYTES # (AUTO) 0.9 10^3/uL (1.0-4.0); LYMPHOCYTES % (AUTO) 29 % (12-44); MEAN CORPUSCULAR HEMOGLOBIN 34 pg (25-34); MEAN CORPUSCULAR HGB CONC 33 g/dL (32-36); MEAN CORPUSCULAR VOLUME 102 fL (80-99); MEAN PLATELET VOLUME 9.3 fL (9.0-12.2); MONOCYTES # (AUTO) 0.4 10^3/uL (0.0-1.0); MONOCYTES % (AUTO) 13 % (0-12); NEUTROPHILS # (AUTO) 1.8 10^3/uL (1.8-7.8); NEUTROPHILS % (AUTO) 56 % (42-75); PLATELET COUNT 133 10^3/uL (130-400); WHITE BLOOD COUNT 3.2 10^3/uL (4.3-11.0)
[2022-04-06 13:13] LABS: URINE CREATININE FOR RATIO 39 MG/DL (30-125)
[2022-04-06 13:15] LABS: URINE PROTEIN FOR RATIO ONLY < 6 MG/DL (6-12)
[2022-04-06 13:16] LABS: ALBUMIN 3.8 GM/DL (3.2-4.5); POTASSIUM 4.2 MMOL/L (3.6-5.0)
[2022-04-06 13:17] LABS: CALCIUM 9.4 MG/DL (8.5-10.1)
[2022-04-06 13:22] LABS: CREATININE SERUM 1.56 MG/DL (0.60-1.30); PHOSPHORUS 2.8 MG/DL (2.3-4.7)
[2022-04-06 13:25] LABS: URIC ACID 6.8 MG/DL (2.6-7.2)
== END ==
LOC: LAB 12:29
PROVIDERS: ATTEND Internal Medicine Nephrology
DX: I12.9 Hypertensive chronic kidney disease with stage 1 through stage 4 chronic kidney disease, or unspecified chronic kidney disease (principal); N18.32 Chronic kidney disease, stage 3b
CPT/HCPCS: 36415; 80069; 82306; 82570; 83970; 84156; 84550; 85025

== ENCOUNTER → 2022-09-22 | Outpatient (CLI) | payer MEDICARE, OTHER | LOC: CARDFS 13:22 | PROVIDERS: ATTEND Internal Medicine Cardiovascular Disease | DX: I34.0 Nonrheumatic mitral (valve) insufficiency (principal); I10 Essential (primary) hypertension; I25.10 Atherosclerotic heart disease of native coronary artery without angina pectoris | CPT/HCPCS: 93306 ==